=== PATIENT | male | born 1955 | race Caucasian/White ===

== ENCOUNTER 2023-12-10 14:52 | Outpatient (CLI) | payer MEDICARE, OTHER ==
--- NOTE | 2023-12-10 16:25 | XRAY Report ---
PROCEDURE: Foot 3+V BL (Weight Bearing) INDICATIONS: BILATERAL FOOT PAIN TECHNIQUE: 3 views of the foot were acquired. COMPARISON: None. FINDINGS: Bones: No fractures or dislocations. No suspicious bony lesions. Pes planus. Marked hallux valgus, right greater than left, with bone bunion formation. Soft tissues: No tibiotalar joint effusion. A chilles tendon appears normal. IMPRESSION: Bilateral pes planus. Marked hallux valgus with bunion formation. Reviewed by: Mason Griggs MD on 12/10/2023 4:24 PM PDT Approved by: Mason Griggs MD on 12/10/2023 4:24 PM PDT Station ID: [id number]
== END 2023-12-10 14:53 | disposition home or self-care (01) ==
LOC: DI 14:52
PROVIDERS: ATTEND Podiatrist
DX: M20.12 Hallux valgus (acquired), left foot (principal); M20.11 Hallux valgus (acquired), right foot; M21.612 Bunion of left foot; M21.611 Bunion of right foot; M21.42 Flat foot [pes planus] (acquired), left foot; M21.41 Flat foot [pes planus] (acquired), right foot